=== PATIENT | male | born 1960 | race Caucasian/White ===

== ENCOUNTER 2023-10-17 12:37 | Outpatient (CLI) | payer BC, SELFPAY ==
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
== END 2023-10-17 12:38 | disposition home or self-care (01) ==
PROVIDERS: Visit Provider Nurse Practitioner
DX: M96.1 Postlaminectomy syndrome, not elsewhere classified (principal); M47.896 Other spondylosis, lumbar region
CPT/HCPCS: 72120

== ENCOUNTER 2023-11-24 12:23 | Outpatient (CLI) | payer BC, SELFPAY ==
--- NOTE | 2023-11-24 12:26 | MR_ITS ---
WS: [id number] MRI LUMBAR SPINE NONCONTRAST TECHNIQUE: Sagittal T1, T2 and STIR imaging. Axial T1 and T2 imaging. CLINICAL INFORMATION: POSTLAMINECTOMY SYNDROME COMPARISON: None. FINDINGS: Mild lumbar curve. No acute compression. No high-grade central canal stenosis. Mild disc bulge L4-L5 and L5-S1. L1-L2: Mild annular bulging. Spinal canal and foramen are patent. L2-L3: No significant disc bulging. Mild facet arthropathy. Spinal canal and foramen are patent. L3-L4: Mild annular bulging. Slight effacement of the ventral thecal sac. Narrowing of the RIGHT suba rticular recess. Mild facet arthropathy. Mild RIGHT and no significant LEFT foraminal narrowing. L4-L5: Mild annular bulging with slight effacement of the ventral thecal sac. Slight impingement shakeel ersing L5 nerve roots bilaterally. Mild facet arthropathy. Small LEFT greater than RIGHT foraminal pr otrusions with impingement on the exiting LEFT greater than RIGHT L4 nerve roots. Moderate LEFT and m ild RIGHT foraminal narrowing. Prior RIGHT hemilaminectomy. L5-S1: Mild bulge with osteophytic ridging. Slight impingement on the RIGHT greater than LEFT S1 nerv e roots. Mild RIGHT and no significant LEFT foraminal narrowing. Visualized pelvic bony structures: Normal. Paravertebral soft tissues: Normal. IMPRESSION: 1. Mild lumbar curve. No acute compression. No high-grade central canal stenosis. 2. Prior RIGHT hemilaminectomy L4-5. Spinal canal is patent at this level with mild narrowing of the subarticular recess bilaterally. 3. Small bilateral foraminal protrusions L4-5 LEFT greater than RIGHT with impingement on the exitin g L4 nerve roots bilaterally. 4. Disc bulging L5-S1 slightly impinges the traversing RIGHT S1 nerve root with mild RIGHT foraminal narrowing. 5. Slight narrowing of the RIGHT L3-4 subarticular recess with mild RIGHT foraminal narrowing. 6. Mild to moderate facet arthropathy L3-L5.
== END 2023-11-24 12:24 | disposition home or self-care (01) ==
LOC: RAD 12:23
PROVIDERS: Visit Provider Nurse Practitioner
DX: M96.1 Postlaminectomy syndrome, not elsewhere classified (principal); M51.26 Other intervertebral disc displacement, lumbar region; M51.37 Other intervertebral disc degeneration, lumbosacral region; M48.07 Spinal stenosis, lumbosacral region; M47.817 Spondylosis without myelopathy or radiculopathy, lumbosacral region
CPT/HCPCS: 72148